=== PATIENT | male | born 1950 | race Caucasian/White ===

== ENCOUNTER 2023-09-10 10:04 | Day surgery (SDC) | payer MEDICARE, OTHER, SELFPAY ==
[2023-09-10] VITALS (24 sets, daily range): BP systolic 108–143; BP diastolic 65–98; PULSE 49–71; TEMP 36.2–36.6; O2SAT 89–99; BMI 20.1
--- NOTE | 2023-09-10 10:38 | CT_ITS ---
[address] [address] Patient Name: ERICKA FUENTES MRN: [id number] date: 1950 Sex: M Assigned Patient Location: ER Current Patient Location: Accession/Order Number: [id number] Exam Date: 09/10/2023 11:32 Report Date: 09/10/2023 12:07 At the request of: JACQUELINE NOVA Procedure: CT abdomen pelvis w con EXAMINATION: CT abdomen pelvis w con HISTORY: Mass in right inguinal/scrotal area, likely hernia ; right lower quadrant pain radiating into right groin COMPARISON: No relevant comparison available. TECHNIQUE: Axial, Coronal, and Sagittal images were obtained without and/or with IV contrast as indicated by examination type. Dose reduction techniques were achieved by using automated exposure control and/or adjustment of mA and/or kV according to patient size and/or use of iterative reconstruction technique. FINDINGS: LUNG BASES: No visible pulmonary or pleural disease. LIVER: No enlargement, atrophy, suspicious density, or significant focal lesion. BILIARY: No dilatation or calcification. PANCREAS: No lesion, fluid collection, or abnormal duct dilatation. SPLEEN: No enlargement or focal lesion. ADRENALS: No mass or enlargement. KIDNEYS: Incidental bilateral parapelvic cysts. No mass, obstruction, or calcification. BOWEL/MESENTERY: Abnormally dilated fluid-filled loops of mid small bowel secondary to obstruction. Long loop of small bowel and associated mesentery extending through the right inguinal canal into the scrotum. Noninflamed diverticulosis of distal colon colon. Normal appendix. AORTA/VASCULAR: No aneurysm or dissection. RETROPERITONEUM: No mass or adenopathy. LYMPH NODES: No adenopathy. URINARY BLADDER: No visible focal wall thickening, lesion, or calculus. PELVIC ORGANS: Prior radioactive seeding of the prostate. ABDOMINAL WALL: Large right inguinal hernia containing a long loop of small bowel which extends into the scrotum. Free fluid within the scrotum. BONES: Posterior mechanical fusion L1-2-3 and posterior decompression of L1 and L2. Moderate compression fracture of L2 which appears to be chronic. Prior mild compression fracture and vertebroplasty of L4. Marked degenerative disc disease L5-S1. OTHER: Negative. CT/CT abdomen pelvis w con IMPRESSION: 1. Small bowel obstruction secondary to a large right inguinal hernia containing a long segment of small bowel extending into the right hemiscrotum. Free fluid within the scrotum raises concern for strangulation of the bowel. Electronically authenticated by: JORDAN BATISTA Date: 09/10/2023 12:07
--- NOTE | 2023-09-10 10:39 | ED.GENADUL1 ---
HPI HPI - General Adult General Chief complaint: Abdominal Pain Stated complaint: ABDOMINAL PAIN Time Seen by Provider: 09/10/23 10:24 Source: patient and family Source information: spouse Mode of arrival: walk-in Limitations: no limitations History of Present Illness HPI narrative: 73-year-old male presents for an area of swelling in the right inguinal and scrotal area that he has had on and off for the past year. He had a CAT scan about a year ago. He was told by his PCP that it is not a hernia. When he lays down it seems to go down and when he stands up it gets bigger. No vomiting or generalized abdominal pain. Related Data Home Medications ?Medication ?Instructions ?Recorded ?Confirmed No Known Home Medications 09/10/23 09/10/23 Allergies Allergy/AdvReac Type Severity Reaction Status Date / Time No Known Drug Allergies Allergy Verified 09/10/23 10:19 Opioid HPI Opioid Management Most Recent Opioid Data: No Data to Display Review of Systems ROS Narrative A ten point review of systems is negative except as noted above. Exam Narrative Exam Narrative: Nurses note and vital signs reviewed and patient is not hypoxic. General: The patient appears well and in no apparent distress. Patient is resting comfortably on cart. Skin: Warm, dry, no pallor noted. There is no rash noted. Head: Normocephalic, atraumatic Eye: Normal conjunctiva, no drainage Ears, Nose, Mouth, and Throat: oral mucosa is moist. Nares patent. Cardiovascular: Regular Rate and Rhythm Respiratory: Patient is in no distress, no accessory muscle use, lungs are clear to auscultation, no wheezing, rales or rhonchi Back: non-tender GI: Soft and nontender. He has mass in the right inguinal and scrotal area. Musculoskeletal: The patient has no evidence of calf tenderness, no pitting edema, symmetrical pulses noted bilaterally Neurological: A&O, normal speech Psychiatric: Cooperative Constitutional Vital Signs, click to edit/add: Last Vital Signs Temp 97.8 F 09/10/23 10:11 Pulse 71 09/10/23 12:18 Resp 18 09/10/23 12:18 BP 134/68 09/10/23 12:18 Pulse Ox 98 09/10/23 12:18 O2 Del Method Room Air 09/10/23 12:18 Course Vital Signs Vital signs: Vital Signs Temperature 97.8 F 09/10/23 10:11 Pulse Rate 60 09/10/23 10:11 Respiratory Rate 16 09/10/23 10:11 Blood Pressure 143/84 H 09/10/23 10:11 Pulse Oximetry 98 09/10/23 10:11 Oxygen Delivery Method Room Air 09/10/23 10:11 Temperature 97.8 F 09/10/23 10:11 Pulse Rate 71 09/10/23 12:18 Respiratory Rate 18 09/10/23 12:18 Blood Pressure 134/68 09/10/23 12:18 Pulse Oximetry 98 09/10/23 12:18 Oxygen Delivery Method Room Air 09/10/23 12:18 Medical Decision Making MDM Narrative Medical decision making narrative: Small bowel obstruction with possible strangulation is identified on CAT scan per radiologist. I have spoken to Dr. Wilson send the patient is being taken to the OR. Findings are discussed with the patient and his . Differential Diagnosis Differential Diagnosis: Hernia, incarcerated hernia, strangulated hernia, testicular mass Lab Data Lab results reviewed: Yes I reviewed the patient's lab results Labs: Lab Results 09/10/23 09/10/23 09/10/23 Range/Units 10:40 10:47 11:00 WBC 4.9 (4.0-11.0) 10^3/uL RBC 4.97 (4.70-6.10) 10^6/uL Hgb 15.1 (14.0-18.0) g/dL Hct 46.2 (42.0-54.0) % MCV 93.0 (80.0-94.0) fL MCH 30.4 (25.9-34.0) pg MCHC 32.7 (29.9-35.2) g/dL RDW 12.0 (11.0-15.0) % Plt Count 146 L (150-450) 10^3/uL MPV 10.1 (9.5-13.5) fL Seg Neuts % (Manual) 61.0 Band Neutrophils % 4.0 (0-5) % Lymphocytes % (Manual) 18.0 L (20.5-60.0) % Monocytes % (Manual) 14.0 H (1.7-12.0) % Eosinophils % (Manual) 2.0 (0.9-7.0) % Basophils % (Manual) 1.0 (0.2-2.0) % Neutrophils # (Manual) 2.98 (1.4-6.5) 10^3/uL Band Neutrophils # 0.2 (0.0-0.3) 10^3/uL Lymphocytes # (Manual) 0.88 L (1.20-3.80) 10^3/uL Monocytes # (Manual) 0.68 (0.30-0.80) 10^3/uL Eosinophils # (Manual) 0.09 (0.00-0.70) 10^3/uL Basophils # (Manual) 0.04 (0.00-0.10) 10^3/uL Sodium 140 (136-145) mmol/L Potassium 4.1 (3.5-5.1) mmol/L Chloride 101 (98-107) mmol/L Carbon Dioxide 29.5 (21.0-32.0) mmol/L Anion Gap 13.6 BUN 18.0 (7.0-18.0) mg/dL Creatinine 0.90 (0.70-1.30) mg/dL Est GFR ( Amer) >60 (>=60) Est GFR (Non-Af Amer) >60 (>=60) BUN/Creatinine Ratio 20.0 Glucose 117 H (74-106) mg/dL Calcium 9.4 (8.5-10.1) mg/dL Urine Color Yellow (YELLOW) Urine Clarity Clear (CLEAR) Urine pH 5.5 (5.0-9.0) Ur Specific [place] >=1.030 A (1.005-1.025) Urine Protein Negative (NEG/TRACE) mg/dL Urine Glucose (UA) Negative (NEGATIVE) mg/dL Urine Ketones Negative (NEGATIVE) mg/dL Urine Occult Blood Small A (NEGATIVE) Urine Nitrite Negative (NEGATIVE) Urine Bilirubin Negative (NEGATIVE) Urine Urobilinogen 0.2 (0.2-1.0) EU/dL Ur Leukocyte Esterase Negative (NEGATIVE) Urine RBC 2-5 A (0-2) #/HPF Urine WBC None seen (NONE SEEN) #/HPF Ur Squamous Epith Cells None seen (NONE/RARE) #/LPF Urine Crystals None seen (None Seen) #/HPF Urine Bacteria None seen (NONE SEEN) #/HPF Urine Casts None seen (NONE SEEN) #/LPF Urine Mucus None seen (NONE SEEN) SARS-CoV-2 Ag (CV2AG) Positive A (NEGATIVE) Imaging Data CT scan - abdomen: Radiologist's impression: ITS Impressions Abdomen/Pelvis CT 09/10/23 10:38 IMPRESSION: 1. Small bowel obstruction secondary to a large right inguinal hernia containing a long segment of small bowel extending into the right hemiscrotum. Free fluid within the scrotum raises concern for strangulation of the bowel. Electronically authenticated by: JORDAN BATISTA Date: 09/10/2023 12:07 ECG Data Attestation: I personally reviewed and interpreted this ECG as follows: (EKG on my interpretation shows sinus rhythm with a rate of 76 and no acute findings.) Discharge Plan Discharge Chief Complaint: Abdominal Pain Clinical Impression: Small bowel obstruction Patient Disposition: Admitted As Inpatient Time of Disposition Decision: 12:36 Condition: Good
[2023-09-10] MEDS: ONDANSETRON PF 4 MG/2 ML VIAL IV (10:52)
[2023-09-10 10:58] LABS: Bilirubin Urine NEGATIVE (NEGATIVE); Blood Urine SMALL (NEGATIVE); Clarity Urine CLEAR (CLEAR); Color Urine YELLOW (YELLOW); Glucose Urine UA NEGATIVE (NEGATIVE); Ketones Urine NEGATIVE (NEGATIVE); Leukocyte Esterase Urine NEGATIVE (NEGATIVE); Nitrite Urine NEGATIVE (NEGATIVE); Protein Urine NEGATIVE (NEG/TRACE); Specific Gravity Urine >=1.030 (1.005-1.025); Urobilinogen Urine 0.2 EU/dL (0.2-1.0); pH Urine 5.5 (5.0-9.0)
[2023-09-10 11:00] LABS: Hematocrit 46.2 % (42.0-54.0); Hemoglobin 15.1 g/dL (14.0-18.0); Mean Corpuscular HGB Conc 32.7 g/dL (29.9-35.2); Mean Corpuscular Hemoglobin 30.4 pg (25.9-34.0); Mean Platelet Volume 10.1 fL (9.5-13.5); Platelet Count 146 10^3/uL (150-450); Red Blood Count 4.97 10^6/uL (4.70-6.10); White Blood Count 4.9 10^3/uL (4.0-11.0)
[2023-09-10 11:11] LABS: Anion Gap 13.6; Calcium 9.4 mg/dL (8.5-10.1); Carbon Dioxide 29.5 mmol/L (21.0-32.0); Chloride 101 mmol/L (98-107); Estimated GFR (African America >60 (>=60); Estimated GFR (Non-African Ame >60 (>=60); Glucose 117 mg/dL (74-106); Potassium 4.1 mmol/L (3.5-5.1); Sodium 140 mmol/L (136-145)
[2023-09-10 11:32] LABS: Bacteria Urine NONE SEEN #/HPF (NONE SEEN); Cast Seen? NONE SEEN #/LPF (NONE SEEN); Crystals Seen? None Seen #/HPF (None Seen); Mucus Urine NONE SEEN (NONE SEEN); Squamous Epithelial Cell Urine NONE SEEN #/LPF (NONE/RARE); WBC Urine NONE SEEN #/HPF (NONE SEEN)
[2023-09-10 11:33] LABS: SARS-CoV-2 Ag POSITIVE (NEGATIVE)
[2023-09-10 12:17] LABS: Band Neutrophils Absolute 0.2 10^3/uL (0.0-0.3); Basophils Abs Manual 0.04 10^3/uL (0.00-0.10); Eosinophils Absolute Manual 0.09 10^3/uL (0.00-0.70); Lymphocytes Absolute Manual 0.88 10^3/uL (1.20-3.80); Monocytes Absolute Manual 0.68 10^3/uL (0.30-0.80); Segmented Neut Absolute Manual 2.98 10^3/uL (1.4-6.5)
--- NOTE | 2023-09-10 12:24 | ECG_ITS ---
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
[2023-09-10 12:31] LABS: Lactate/Lactic Acid 1.4 mmol/L (0.4-2.0)
[2023-09-10] MEDS: LACTATED RINGER'S SOLUTION 1,000 ML 50 ML IV ×2 (12:40→14:14)
[2023-09-10] MEDS: MORPHINE SULFATE 2 MG/ML SYRINGE IV (12:41)
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
[2023-09-10] MEDS: CEFAZOLIN SODIUM/DEXTROSE,ISO 2 GM/50 ML PIGGYBACK IV (13:16)
--- NOTE | 2023-09-10 13:28 | P.GSPRC_ITS ---
Date of procedure: 09/10/23 Indications for Procedure: SBO/incarcerated right inguinal hernia Pre-op diagnosis: SBO/incarcerated right inguinal hernia Procedure: repair of incarcerated right inguinal hernia with mesh (medium mesh plug Findings: indirect right inguinal hernia Anesthesia: BLAYNE Surgeon: Keven Bhagat Procedure Summary: REPAIR OF INGUINAL HERNIA WITH MESH PLUG The patient was taken to the Operating Suite and placed in the supine position and given a general anesthetic by the anesthesiologist.timeout was taken and preoperative antibiotics were given. The right groin was prepped and draped in the usual sterile fashion. A right inguinal incision was made down through all layers exposing the external oblique aponeurosis which was opened through the external ring taking care to preserve the ilioinguinal nerve. The spermatic cord and its contents were lifted off the pubic tubercle and placed into a Sumit drain for traction and then an indirect hernia sac was searched for superior and medial to the cord. The hernia sac was from the spermatic cord and then inverted at the internal ring and then a medium mesh plug was inserted at the internal ring and sutured circumferentially with 3-0 Vicryl suture in an interrupted fashion. Next the mesh on-lay patch was placed into the floor of the groin suturing it to the pubic tubercle with 2-0 Prolene suture in an interrupted fashion as well as to the shelving portion of the Poupart's ligament with 2-0 Prolene suture in an interrupted fashion. The superior portion of the mesh on-lay patch was then suture plicated to the internal oblique aponeurosis with 3- 0 Vicryl in interrupted fashion so that it laid flatly. The sling of the mesh was placed around the spermatic cord at the internal ring and sutured with 2- 0 Prolene suture in an interrupted fashion. Then the external oblique aponeurosis was closed with 3-0 Vicryl suture in a running continuous fashion after returning the spermatic cord to its normal anatomic position and removing the Sumit drain. Hemostasis being maintained, the Stanislaw's fascia was closed with 3-0 Vicryl suture in an interrupted fashion and skin closed with 4-0 Monocryl suture in running subcuticular fashion after infiltrating subcutaneous tissues with 0.5% plain Marcaine 30 cc. Sterile dressing placed. Specimens - None. Sponge count - Correct. Case was clean, elective. Postoperative condition is satisfactory. Manager Telemetry: LULA Clement Estimated blood loss (mL): 2 Specimens: none Complications: No Pathology: none sent Condition: stable Disposition: PACU
[2023-09-10] MEDS: BUPIVACAINE HCL 0.5% PF 50 MG/10 ML VIAL 20 ML INJ (14:34)
--- NOTE | 2023-09-10 16:01 | PC.NURSE ---
1530- Patient received from PACU nurse. Patient awake. A/O x3. Right lower quad dressing dry and intact. Patient C/O # 2 lower abdominal pain. LACF IV site patent and intact. at bedside. Sips of water and jello taken without difficulty 1550- Patient voids 300 cc francoise urine. ABD dressing remains dry and intact. Pain level unchanged. 1600- Patient up to edge of bed without difficulty.
--- NOTE | 2023-09-10 16:23 | PC.NURSE ---
1615- Up ad ana luisa in room. present. Dressing remains dry and intact. L ACF IV removed and pressure applied. Discharge instructions reviewed.
== END 2023-09-10 16:25 | disposition home or self-care (01) ==
LOC: ER 12:36 → OR 12:50 → ICU 15:53
PROVIDERS: Emergency Provider Emergency Medicine; Visit Provider Surgery
PROC: (CPT 49507; principal; 2023-09-10 13:00)
DX: K40.30 Unilateral inguinal hernia, with obstruction, without gangrene, not specified as recurrent (principal); U07.1 COVID-19; Z90.01 Acquired absence of eye
CPT/HCPCS: 49507; 36415; 74177; 80048; 81001; 83605; 85007; 85027; 87811; 93005; 96374; 96375; 99285; C1781; J1094; J2704; Q9967